=== PATIENT | male | born 1970 ===

== ENCOUNTER 2022-02-05 11:07 | Outpatient (CLI) | payer OTHER | END 2022-02-05 11:17 | disposition home or self-care (01) | LOC: RAD 11:07 | PROVIDERS: ATTEND Surgery | DX: K51.011 Ulcerative (chronic) pancolitis with rectal bleeding (principal); D50.9 Iron deficiency anemia, unspecified ==

== ENCOUNTER 2022-02-08 10:15 | Inpatient (IN) | payer OTHER ==
[~2022-02-08] VITALS: Ht 182.9 cm; Wt 100.7 kg
[2022-02-08] MEDS ORDERED: IRON325 MG PO (13:51)
[2022-02-08] MEDS ORDERED: MILLIPRED5 MG PO (13:51)
[2022-02-12] MEDS ORDERED: FAMOTIDINE20 MG (09:21)
[2022-02-12] MEDS ORDERED: CLONAZEPAM0.5 MG (09:21)
[2022-02-12] MEDS ORDERED: FLUOXETINE HCL10 MG (09:21)
[2022-02-16] MEDS ORDERED: PERCOCET 5-3251 EACH PO (14:11)
[2022-02-16] MEDS ORDERED: IMODIUM A-D2 M2 PO (14:11)
== END 2022-02-16 15:34 | disposition home or self-care (01) | DRG 331 ==
LOC: EDUNIT# 10:15 → O/R 02-12 06:09 → SURH 02-12 07:00
PROVIDERS: ADMIT Surgery; ATTEND Surgery
PROC: 0DTP4ZZ Resection of Rectum, Percutaneous Endoscopic Approach (ICD-10-PCS; 2022-02-12)
PROC: 0D1B4Z4 Bypass Ileum to Cutaneous, Percutaneous Endoscopic Approach (ICD-10-PCS; 2022-02-12)
PROC: 0DJD8ZZ Inspection of Lower Intestinal Tract, Via Natural or Artificial Opening Endoscopic (ICD-10-PCS; 2022-02-12)
PROC: 0DTN4ZZ Resection of Sigmoid Colon, Percutaneous Endoscopic Approach (ICD-10-PCS; principal; 2022-02-12 07:00)
PROC: 4A12X4Z Monitoring of Cardiac Electrical Activity, External Approach (ICD-10-PCS; 2022-02-13)
DX: K51.011 Ulcerative (chronic) pancolitis with rectal bleeding (principal); D64.9 Anemia, unspecified; D12.1 Benign neoplasm of appendix; D36.0 Benign neoplasm of lymph nodes; D12.6 Benign neoplasm of colon, unspecified; K63.89 Other specified diseases of intestine; G47.39 Other sleep apnea

== ENCOUNTER 2022-07-10 09:47 | Outpatient (CLI) | payer OTHER | END 2022-07-10 09:59 | disposition home or self-care (01) | LOC: RAD 09:47 | DX: K51.011 Ulcerative (chronic) pancolitis with rectal bleeding (principal); Z93.2 Ileostomy status ==

== ENCOUNTER 2022-07-13 09:00 | Inpatient (IN) | payer OTHER ==
[~2022-07-13] VITALS: Ht 182.9 cm; Wt 99.8 kg
[~2022-07-13 09:00] MED LIST: CLONAZEPAM0.5 MG; FAMOTIDINE20 MG; FLUOXETINE HCL10 MG; IMODIUM A-D2 M2 PO; IRON325 MG PO; MILLIPRED5 MG PO; PERCOCET 5-3251 EACH PO
[2022-07-19] MEDS ORDERED: RAYOS5 MG (08:00)
[2022-07-19] MEDS ORDERED: FERROUS SULFAT325 MG (08:00)
[2022-07-19] MEDS ORDERED: ENOXAPARIN40 MG/0.4 (08:00)
[2022-07-19] MEDS ORDERED: TIMOLOL MALEATE5 M4 (08:00)
[2022-07-22] MEDS ORDERED: LEVSIN/SL0.125 MG SL (11:23)
[2022-07-22] MEDS ORDERED: PERCOCET 5-3251 EACH PO (11:24)
== END 2022-07-22 12:35 | disposition home or self-care (01) | DRG 349 ==
LOC: ADM 09:00 → SURG 07-18 07:00 → O/R 07-18 07:03 → EDSTATUS 07-18 09:00 → CIR.AMB 07-18 09:00 → SURG 07-18 09:00 → SURH 07-19 08:58 → SURG 07-19 09:13
PROVIDERS: ADMIT Surgery; ATTEND Surgery
PROC: 0DBB4ZZ Excision of Ileum, Percutaneous Endoscopic Approach (ICD-10-PCS; principal; 2022-07-18 07:00)
DX: K51.011 Ulcerative (chronic) pancolitis with rectal bleeding (principal); Z93.2 Ileostomy status; D13.30 Benign neoplasm of unspecified part of small intestine; Z20.822 Contact with and (suspected) exposure to COVID-19; G47.33 Obstructive sleep apnea (adult) (pediatric)

== ENCOUNTER 2024-07-30 12:10 | Outpatient (CLI) | payer OTHER ==
[~2024-07-30 12:10] MED LIST changes: +ENOXAPARIN40 MG/0.4; +FERROUS SULFAT325 MG; +LEVSIN/SL0.125 MG SL; +RAYOS5 MG; +TIMOLOL MALEATE5 M4
== END 2024-07-30 12:22 | disposition home or self-care (01) ==
LOC: SONOGRAMA 12:10
PROVIDERS: ATTEND Urology
DX: N40.0 Benign prostatic hyperplasia without lower urinary tract symptoms (principal); R31.1 Benign essential microscopic hematuria